=== PATIENT | male | born 1985 | race Caucasian/White ===

== ENCOUNTER 2023-12-15 18:45 | Emergency (ER) | payer MEDICAID ==
[~2023-12-15] VITALS: Ht 188 cm; Wt 144.2 kg
[2023-12-15 18:57] VITALS: BP_SYST 172; PULSE 97; RESP 16; TEMP 98.9; O2SAT 95
[2023-12-15] MEDS ORDERED: AMOX500C2 PO (19:10)
[2023-12-15] MEDS ORDERED: IBUP-1971 PO (19:10)
[2023-12-15] MEDS ORDERED: PRED20TA PO (19:10)
[2023-12-15] MEDS: IBUPROFEN 800 MG TABLET PO ONE (19:25)
[2023-12-15] MEDS: AMOXICILLIN 500 MG CAPSULE PO ONE (19:25)
[2023-12-15] MEDS: predniSONE 20 MG TABLET PO ONE (19:25)
[2023-12-15] MEDS ORDERED: LORA-259 PO (19:30)
[2023-12-15 19:38] VITALS: BP_SYST 172; PULSE 97; RESP 16; TEMP 98.9; O2SAT 95
== END 2023-12-15 19:38 | disposition home or self-care (01) ==
LOC: SED 18:45
DX: J02.9 Acute pharyngitis, unspecified (principal); R50.9 Fever, unspecified; Z79.899 Other long term (current) drug therapy
CPT/HCPCS: 99284; J7512

== ENCOUNTER 2024-01-29 19:19 | Emergency (ER) | payer MEDICAID ==
[~2024-01-29] VITALS: Ht 188 cm; Wt 144.2 kg
[~2024-01-29 19:19] MED LIST: AMOX500C2 PO; IBUP-1971 PO; LORA-259 PO; PRED20TA PO
[2024-01-29 19:55] VITALS: BP_SYST 116; PULSE 76; RESP 16; TEMP 97.7; O2SAT 95
[2024-01-30] MEDS ORDERED: ONDA-8 TL (14:03)
== END 2024-01-29 21:00 | disposition left against medical advice (07) ==
LOC: SED 19:19
DX: R19.7 Diarrhea, unspecified (principal); R11.2 Nausea with vomiting, unspecified; R10.9 Unspecified abdominal pain; Z53.21 Procedure and treatment not carried out due to patient leaving prior to being seen by health care provider
CPT/HCPCS: 99281

== ENCOUNTER 2024-01-30 10:15 | Emergency (ER) | payer MEDICAID ==
[~2024-01-30] VITALS: Ht 188 cm; Wt 136.1 kg
[2024-01-30 10:25] VITALS: BP_SYST 132; BP_SYST 141; PULSE 67; PULSE 95; RESP 18; TEMP 97; TEMP 97.7; O2SAT 94; O2SAT 95
[2024-01-30 11:40] LABS: BASOPHILS % (AUTO) 0.7 % (0.0-2.0); EOSINOPHILS # (AUTO) 0.1 K/uL (0.0-0.4); EOSINOPHILS % (AUTO) 1.5 % (0.0-4.0); HEMATOCRIT 42.7 % (36-54); HEMOGLOBIN 14.5 g/dL (14.0-18.0); LYMPHOCYTES # (AUTO) 1.8 K/uL (1.0-5.5); LYMPHOCYTES % (AUTO) 38.7 % (20.5-51.5); MEAN CORPUSCULAR HEMOGLOBIN 28 pg (27-31); MEAN CORPUSCULAR HGB CONC 34 % (32-36); MEAN CORPUSCULAR VOLUME 82 fL (79.0-98.0); MONOCYTES # (AUTO) 0.6 K/uL (0.0-1.0); MONOCYTES % (AUTO) 12.6 % (1.7-9.3); NEUTROPHILS # (AUTO) 2.2 K/uL (1.8-7.7); NEUTROPHILS % (AUTO) 46.5 % (40.0-70.0); PLATELET COUNT (AUTO) 185 K/uL (130-430); RED CELL DISTRIBUTION WIDTH 14.4 % (9.0-15.0); WHITE BLOOD COUNT (AUTO) 4.6 K/uL (4.8-10.8)
[2024-01-30 11:57] LABS: CALCIUM 8.8 mg/dL (8.4-11.0); CREATININE 1.01 mg/dL (0.55-1.30); POTASSIUM 4.2 mmol/L (3.5-5.1)
[2024-01-30 12:02] LABS: ALBUMIN 3.9 g/dL (3.4-4.8); BILIRUBIN,DIRECT 0.1 mg/dL (0.0-0.3); TOTAL BILIRUBIN 0.3 mg/dL (0.0-1.0); TOTAL PROTEIN, SERUM 7.2 g/dL (6.4-8.3)
[2024-01-30] MEDS: ONDANSETRON HCL 4 MG/2 ML VIAL IVP ONE (12:11)
[2024-01-30] MEDS: NACL 0.9% 1,000 ML IV ONE (12:11)
[2024-01-30 12:50] LABS: BILIRUBIN,URINE NEGATIVE (NEGATIVE); BLOOD, URINE NEGATIVE (NEGATIVE); CLARITY/URINE CLEAR (CLEAR); COLOR,URINE YELLOW (YELLOW); GLUCOSE,URINE NEGATIVE (NEGATIVE); KETONES,URINE NEGATIVE (NEGATIVE); LEUKOCYTE ESTERASE ,URINE NEGATIVE (NEGATIVE); NITRITE, URINE NEGATIVE (NEGATIVE); PH,URINE 5.5 (5.0-8.0); PROTEIN URINE NEGATIVE (NEGATIVE); UROBILINOGEN,URINE 0.2 (0.2-1.0)
[2024-01-30] MEDS ORDERED: ONDA-8 TL (14:03)
[2024-01-30 14:13] VITALS: BP_SYST 109; PULSE 64; RESP 18; TEMP 98.4; O2SAT 94
== END 2024-01-30 14:13 | disposition home or self-care (01) ==
LOC: SED 10:15
DX: R10.12 Left upper quadrant pain (principal); R19.7 Diarrhea, unspecified; R11.0 Nausea; I10 Essential (primary) hypertension; Z79.899 Other long term (current) drug therapy
CPT/HCPCS: 99285; 74176; 96374; 96361; 80076; 80048; 81001; 83690; 85025; 87040; 36415; 83605; 81003; J2405; J7030